=== PATIENT | female | born 2000 | race Hispanic/Latino ===

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

== ENCOUNTER 2022-02-01 12:13 | Emergency (ER) | payer OTHER, MEDICAID, SELFPAY ==
[2021-11-02 08:18] VITALS: BMI 52.4
[2022-02-01 12:39] VITALS: BP 126/72; PULSE 104; RESP 20; TEMP 36.6; O2SAT 99; BMI 50.5
--- NOTE | 2022-02-01 13:19 | ED.RECABL ---
HPI - Recheck/Abnormal Lab/Rx <Keila Amor [facility] - Last Filed: 02/01/22 20:08> General Chief Complaint: Recheck/Abnormal Lab/Rx Stated Complaint: Without Thyroid meds x14 days Time Seen by Provider: 02/01/22 13:04 Source: patient Mode of arrival: Ambulatory History of Present Illness HPI narrative: This is a 21-year-old female who presents to the emergency department requesting a medication refill of her levothyroxine 225 mcg daily for her a thyroidism status post thyroidectomy and radiation in August 2019. Patient states that her primary care provider Sang Mitchell requested patient have a TSH level drawn prior to refilling her prescription, patient states that she does not have time to go to that appointment. She came to the emergency department and states that she has a follow-up appointment with Sang Mitchell in two days and would like her medication refilled so that she can start taking it again. She states it has been two weeks without the 25 mcg tablets the go with her 200 mcg tablets. She denies any mental status changes, weakness, dizziness, or fainting. Related Data Home Medications Medication Instructions Recorded Confirmed acetaminophen 325 mg tablet 325 - 650 mg PO PRN PRN 09/26/19 11/05/21 Previous Rx's Medication Instructions Recorded fluticasone propionate 50 2 spray NASAL DAILY #9.9 ml 08/08/20 mcg/actuation nasal spray,suspension (Flonase Allergy Relief) lorazepam 1 mg tablet (Ativan) 1 mg PO BID PRN #7 tab 01/19/21 cetirizine 10 mg capsule (All Day 10 mg PO DAILY PRN #30 cap 07/09/21 Allergy (cetirizine)) fluoxetine 20 mg capsule 20 mg PO DAILY #90 cap 08/17/21 levothyroxine 25 mcg tablet 25 mcg PO DAILY #60 tab 08/17/21 budesonide-formoterol HFA 160 See Rx Instructions .ROUTE 10/16/21 mcg-4.5 mcg/actuation aerosol .COMPLEX #10.2 g inhaler albuterol sulfate 2.5 mg (3 mL) INHALATION Q4HP PRN 01/22/22 #180 ml albuterol sulfate 90 mcg/actuation 2 puff INHALATION Q4H PRN #18 gram 01/22/22 aerosol inhaler (Proventil HFA) levothyroxine 200 mcg tablet See Rx Instructions .ROUTE 01/28/22 .COMPLEX #7 tab levothyroxine 200 mcg tablet 200 mcg PO DAILY #30 tab 02/01/22 levothyroxine 25 mcg tablet 25 mcg PO DAILY #30 tab 02/01/22 (Levo-T) Allergies Allergy/AdvReac Type Severity Reaction Status Date / Time nystatin Allergy Unknown (From Verified 11/05/21 15:11 NYSTATIN AND TRIAMCINOLONE ACET) triamcinolone Allergy Unknown (From Verified 11/05/21 15:11 NYSTATIN AND TRIAMCINOLONE ACET) oxycodone AdvReac Intermediate ITCHING Verified 11/05/21 15:11 adhesive tape AdvReac Mild rash Verified 11/05/21 15:11 Latex, Natural Rubber AdvReac Mild rash Verified 11/05/21 15:11 Review of Systems <DEMI Barnes - Last Filed: 02/01/22 20:08> Review of Systems Narrative: General: denies fever, chills, malaise, sweats, fatigue Head/Neck: denies headache, neck pain, dizziness Eyes: denies visual changes, eye pain Cardio: denies chest pain, palpitations, edema Respiratory: denies dyspnea, cough, orthopnea GI: denies abdominal pain, nausea, vomiting, or diarrhea : denies dysuria, hematuria, urinary retention, frequency or incontinence MSK: denies joint pain, muscle weakness Skin: denies rash, itching, skin lesions or other Neuro: denies numbness, tingling Patient History <DEMI Barnes - Last Filed: 02/01/22 20:08> Medical History Acne Anxiety (~2018) Asthma Asthma Chronic back pain Depression (~2018) Dysmenorrhea in adolescent Dysuria Heavy menstrual period Hemorrhage following tonsillectomy and adenoidectomy Hx of cholelithiasis Irregular menstrual cycle Moderate persistent asthma Morbid obesity with body mass index (BMI) of 40.0 to 49.9 Painful menstrual periods Palpitations in pediatric patient Papillary thyroid carcinoma Partial blindness (~2012) Pediatric obesity Postprocedural hypothyroidism PTSD (post-traumatic stress disorder) (~2018) Right hip pain Thyroid mass of unclear etiology Vocal cord dysfunction (~2015) VSD (ventricular septal defect) VSD (ventricular septal defect) Wears glasses Surgical History Anesthesia History of cholecystectomy (~2017) History of thyroidectomy (~09/06/19) History of tonsillectomy and adenoidectomy Hx of tympanostomy tubes Family History Father Mental health problem Mother Cancer Mental health problem Brother Mental health problem Sister Mental health problem Grandfather Diabetes mellitus Hypertension Stroke Grandmother Cancer Mental health problem Grandmother History of heart disease Social History household members: family Smoking Status: Current every day smoker alcohol intake: never Smoking Status: Current every day smoker tobacco type: vaping alcohol intake frequency: holidays/special occasions only Substance Use Type: marijuana Exam <DEMI Barnes - Last Filed: 02/01/22 20:08> Narrative Exam Narrative: Independently reviewed vitals signs and nursing notes. General: cooperative, comfortable, in no acute distress, well groomed Head: atraumatic, symmetrical facial expressions Neck: supple Eyes: equal round and reactive, EOMI, conjunctiva normal Nose: nares patent, no rhinorrhea Mouth/Throat: moist mucus membranes Cardiovascular: regular rate and rhythm, no peripheral edema, warm extremities Respiratory: normal effort, able to speak in complete sentences, no audible wheezing, stridor, or rales. No retractions or tachypnea. GI: abdomen soft, nontender to palpation, nondistended, no masses, no exquisite tenderness with exam, without guarding or rebound. MSK: moves all extremities, neurovascularly intact, no weakness, normal tone Skin: brisk capillary refill, no rash, no erythema Neuro: normal speech and cognition, A&O x3 Psych: mental status is grossly normal, congruent mood, normal affect, pleasant and cooperative Initial Vital Signs Initial Vital Signs: Vital Signs Temperature 97.8 F 02/01/22 12:39 Pulse Rate 104 H 02/01/22 12:39 Respiratory Rate 20 02/01/22 12:39 Blood Pressure 126/72 02/01/22 12:39 Pulse Oximetry 99 02/01/22 12:39 <Cierra Garces DO - Last Filed: 02/02/22 07:14> Initial Vital Signs Initial Vital Signs: Vital Signs Temperature 97.8 F 02/01/22 12:39 Pulse Rate 104 H 02/01/22 12:39 Respiratory Rate 20 02/01/22 12:39 Blood Pressure 126/72 02/01/22 12:39 Pulse Oximetry 99 02/01/22 12:39 Course <DEMI Barnes - Last Filed: 02/01/22 20:08> Orders Ordered: ED Orders 02/01/22 13:09 Free T4, Direct Thyroxine Stat TSH w/ Reflex to FT4 Stat Vital Signs Vital signs: Vital Signs - 8 hr 02/01/22 12:39 Temperature 97.8 F Pulse Rate 104 H Respiratory Rate 20 Blood Pressure 126/72 Pulse Oximetry 99 <Cierra Garces DO - Last Filed: 02/02/22 07:14> Orders Ordered: ED Orders 02/01/22 13:09 Free T4, Direct Thyroxine Stat TSH w/ Reflex to FT4 Stat Vital Signs Vital signs: Vital Signs - 8 hr 02/01/22 12:39 Temperature 97.8 F Pulse Rate 104 H Respiratory Rate 20 Blood Pressure 126/72 Pulse Oximetry 99 MDM - Recheck/Abnormal Lab/Rx <DEMI Barnes - Last Filed: 02/01/22 20:08> Lab Data Labs: Lab Results 02/01/22 Range/Units 13:09 TSH 9.49 H (0.47-4.68) uIU/mL Free T4 1.31 (0.78-2.19) ng/dL MDM Narrative Medical decision making narrative: This is a 21-year-old female presents to the emergency department complaining of needing a medication refill of her 25 mcg tablets of levothyroxine to go with her 200 mcg tablets for her a thyroidism s/p thyroidectomy and radiation in August 2019. The patient states that she does not have time for follow-up appointments with her primary care provider to have her thyroid level checked. She was counseled on the importance of rechecking her level to ensure a therapeutic dose as we did not have a therapeutic level on record of her today for her TSH. Her most recent TSH level was 0.2 to sit was on 10/29/2021, she states that that is when to 25 mics was added to her 200 mcg tablets, she has not had another level checked since. Today her TSH level was checked and is 9.49. Previously on 10/29/2021, patient's TSH was 0.226, she states this was after she was treated with 25 mcgs in addition to her 200 mcg. Patient was prescribed 225 mcg of levothyroxine for 30 days, she is to follow-up with her primary care provider for an ongoing prescription. Patient is tearful, states that she does not have time for this. Reassured patient that this is part of chronic disease and just because she had her thyroid out and needs this medication for ever, it might not always be the same dose, and she is not currently therapeutically treated with a TSH of 9.49. Patient was educated on following up within 30 days, she states understanding, her partner was reassuring. Patient does not have any neuro deficits on exam, she is appropriate and amenable to discharge home. Vital signs are stable on repeat examination is unremarkable. Patient has been informed of results. Patient has been given strict return to ER precautions for any new or worsening symptoms. Patient understands to follow up closely with outpatient providers as instructed. Patient understands plan and agrees to discharge home. All questions and concerns answered at this time. <Cierra Garces, - Last Filed: 02/02/22 07:14> Lab Data Labs: Lab Results 02/01/22 Range/Units 13:09 TSH 9.49 H (0.47-4.68) uIU/mL Free T4 1.31 (0.78-2.19) ng/dL Discharge Plan Departure Patient Disposition: Home Clinical Impression: Encounter for medication refill, Athyroidism (acquired) Instructions: Hypothyroidism Activity Restrictions/Additional Instructions: *You have been diagnosed with athyroidism and were provided a refill of your previous prescription of levothyroxine 225 mcg daily for 30 days. Please follow-up at your appointment with Sang Mitchell on Tuesday. I will send your thyroid level to her so she knows what it is. Please return to the emergency department if you have any loss of consciousness, chest pain, or other emergent concerns. I hope that you start feeling better soon. Please have your level checked in 30 days to make sure that is the accurate dose for you. I wish you the best. *What to do: *Please continue to take your regular medications as directed. [x ] New medication prescriptions sent to your pharmacy: [ [facility]] [ ] New medication written as a paper prescription [ ] No new medications given *Please follow up with your primary care provider in 2-3 days, call for an appointment. Let them know you were seen in the Emergency Department and that we asked that you be seen for follow-up. We will electronically transmit a record of today's note if your PCP is in our system *If you do not have a primary care provider please contact [phone] to establish care with one of the [facility] primary care providers. *Return to Emergency Department if you should have any new, worsening or concerning symptoms, such as [fever greater than 101F, chills, worsening pain, persistent vomiting or other bothersome symptoms] Prescriptions: New levothyroxine 200 mcg tablet 200 mcg PO DAILY Qty: 30 0RF levothyroxine [Levo-T] 25 mcg tablet 25 mcg PO DAILY Qty: 30 0RF No Action fluticasone propionate [Flonase Allergy Relief] 50 mcg/actuation spray,suspension 2 spray NASAL DAILY Qty: 9.9 12RF Rx Instructions: administer into each nostril All Day Allergy (cetirizine) 10 mg capsule 10 mg PO DAILY PRN (Reason: allergy symptoms) Qty: 30 0RF Rx Instructions: One tablet each day as needed for allergic rhinitis budesonide-formoterol 160-4.5 mcg/actuation HFA aerosol inhaler See Rx Instructions .ROUTE .COMPLEX Qty: 10.2 3RF Dose Instruction: INHALE 2 PUFFS BY MOUTH TWICE DAILY Rx Instructions: INHALE 2 PUFFS BY MOUTH TWICE DAILY albuterol sulfate 2.5 mg /3 mL (0.083 %) solution for nebulization 2.5 mg inhalation Q4HP PRN (Reason: Shortness Of Breath Or Wheezing) Qty: 180 0RF albuterol sulfate [Proventil HFA] 90 mcg/actuation HFA aerosol inhaler 2 puff INHALATION Q4H PRN (Reason: Asthma) Qty: 18 5RF levothyroxine 200 mcg tablet See Rx Instructions .ROUTE .COMPLEX Qty: 7 0RF Dose Instruction: TAKE 1 TABLET BY MOUTH DAILY Rx Instructions: TAKE 1 TABLET BY MOUTH DAILY levothyroxine 25 mcg tablet 25 mcg PO DAILY Qty: 60 0RF fluoxetine 20 mg capsule 20 mg PO DAILY Qty: 90 1RF acetaminophen 325 mg tablet 325 - 650 mg PO PRN PRN (Reason: pain) 0RF lorazepam [Ativan] 1 mg tablet 1 mg PO BID PRN (Reason: anxiety) Qty: 7 0RF Referrals: Sang Mitchell ARNP [Primary Care Provider] - <Cierra Garces DO - Last Filed: 02/02/22 07:14> Cosign ED Attending Micahature Attestation: I was immediately available in the department for consultation. Documentation has been reviewed. I agree with assessment and plan.
[2022-02-01 14:03] LABS: TSH w/ Reflex to FT4 9.49 uIU/mL (0.47-4.68)
[2022-02-01 14:28] LABS: Free T4, Direct Thyroxine 1.31 ng/dL (0.78-2.19)
== END 2022-02-01 13:20 | disposition home or self-care (01) ==
PROVIDERS: Emergency Medicine; Emergency Provider Nurse Practitioner Critical Care Medicine; PCP Registered Nurse Diabetes Educator
DX: Z76.0 Encounter for issue of repeat prescription (principal); E03.9 Hypothyroidism, unspecified
CPT/HCPCS: 36415; 84439; 84443; 99281; 99283

== ENCOUNTER 2022-02-03 16:07 | Emergency (ER) | payer OTHER, MEDICAID, SELFPAY ==
[2021-11-02 08:18] VITALS: BMI 52.4
[2022-02-03 16:15] VITALS: BP 127/87; PULSE 100; RESP 24; TEMP 37; O2SAT 96
[2022-02-03] MEDS: ALBUTEROL/IPRATROPIUM 3 ML AMPUL INH ×3 (16:31→17:14)
[2022-02-03 16:38] LABS: COVID19 -Nasal RAPID Negative (Negative)
[2022-02-03] MEDS: BUDESONIDE 0.5 MG/2 ML NEB INH (17:22)
--- NOTE | 2022-02-03 17:29 | DI.RAD.S_ITS ---
PROCEDURE: XR CHEST 2V INDICATIONS: wheezing TECHNIQUE: 2 views of the chest were acquired. COMPARISON: [facility], CR, XR CHEST 1V, 09/27/2021, 17:53. FINDINGS: Surgical changes and devices: None. Lungs and pleura: Lungs are clear. No pleural effusions or pneumothorax. Mediastinum: Mediastinal contours are normal. Heart size is normal. Bones and chest wall: No suspicious bony abnormalities. Soft tissues appear unremarkable. IMPRESSION: No significant chest plain film abnormality is seen. Dictated by: Eugene Clark M.D. on 02/03/2022 at 17:06 Approved by: Eugene Clark M.D. on 02/03/2022 at 17:07
[2022-02-03 17:34] LABS: Strep Grp A by PCR Rapid Negative (Negative)
[2022-02-03] MEDS: methylPREDNISolone 125 MG/2 ML VIAL IV (17:57)
[2022-02-03] MEDS: ALBUTEROL HFA PREPACK 1 BOX MISC (17:57)
--- NOTE | 2022-02-03 18:50 | CM.SWNOTE ---
.NET ARCHITECT Assessment Note .NET ARCHITECT receives consult and enters room to meet with patient. Patient is 21 y/o female who presents to ED due to concern for asthma attack and not able to pay for inhaler and albuterol medication. Patient's PCP is DEMI Early, patient had appt today and has f/u appt for 03/18/22. Patient has [facility] [employer] insurance and Medicaid. Patient has hx of Asthma, PTSD, Depression, and Anxiety. Patient endorses that she had her thyroid removed in 2019 due to thyroid cancer and engaged in at least a year of radiation, but has not followed up with [facility]. Patient endorses the trauma of growing up going to the hospital all of the time and concern for the cost of medical treatment that has been holding patient back from seeking regular medical treatment for her chronic and/or acute medical conditions. Patient presents with fiance who presents as advocate and support to patient. 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 Patient and fiance endorse concern for inconsistent living situation and state they are currently living with a friend and plan to move to [place] to live at father's home. Patient endorses her primary concern of many is covering fiances for medical bills, and prescriptions. At this ED visit, ED provider gave patient rx for inhaler and albuterol prepack. .NET ARCHITECT provides patient with options for discount RX, information about medical leave/FMLA and information about [facility] application for today's visit if there is an unexpected cost. .NET ARCHITECT encourages patient to take action in her preventative health care and to f/u with her team at [facility] for her thyroid f/u. Plan: patient to f/u with PCP and seek f/u with specialists. Patient to seek out medical assistance and attempt to apply for medical leave. Patient to d/c when medically clear. DOMINIQUE Richardson
[2022-02-03 18:56] VITALS: BP 129/74; PULSE 103; RESP 24; O2SAT 100
--- NOTE | 2022-02-03 18:56 | ED.SOB ---
HPI - SOB/Dyspnea <Tawny Fallon PA-C - Last Filed: 02/03/22 19:39> General Chief Complaint: Shortness of Breath/Dyspnea Stated Complaint: Asthma attack Time Seen by Provider: 02/03/22 16:25 Source: patient Mode of arrival: Wheelchair Limitations: no limitations History of Present Illness HPI Narrative: Patient is a 21-year-old female presenting today with shortness of breath and difficulty breathing for the past hour. She reports shallow breathing, wheezing, and tachypnea. She additionally reports a sore throat. She denies any chest pain, headache, or nausea. She has a history of asthma but does not take her inhaler routinely as she states she cannot afford it. She says she has been taking a nebulizer daily. She has anxiety and has had asthma exacerbations in the past. Related Data Home Medications Medication Instructions Recorded Confirmed acetaminophen 325 mg tablet 325 - 650 mg PO PRN PRN 09/26/19 02/03/22 Previous Rx's Medication Instructions Recorded fluticasone propionate 50 2 spray NASAL DAILY #9.9 ml 08/08/20 mcg/actuation nasal spray,suspension (Flonase Allergy Relief) lorazepam 1 mg tablet (Ativan) 1 mg PO BID PRN #7 tab 01/19/21 cetirizine 10 mg capsule (All Day 10 mg PO DAILY PRN #30 cap 07/09/21 Allergy (cetirizine)) fluoxetine 20 mg capsule 20 mg PO DAILY #90 cap 08/17/21 levothyroxine 25 mcg tablet 25 mcg PO DAILY #60 tab 08/17/21 budesonide-formoterol HFA 160 See Rx Instructions .ROUTE 10/16/21 mcg-4.5 mcg/actuation aerosol .COMPLEX #10.2 g inhaler albuterol sulfate 2.5 mg (3 mL) INHALATION Q4HP PRN 01/22/22 #180 ml albuterol sulfate 90 mcg/actuation 2 puff INHALATION Q4H PRN #18 gram 01/22/22 aerosol inhaler (Proventil HFA) levothyroxine 200 mcg tablet See Rx Instructions .ROUTE 01/28/22 .COMPLEX #7 tab levothyroxine 200 mcg tablet 200 mcg PO DAILY #30 tab 02/03/22 levothyroxine 25 mcg tablet 25 mcg PO DAILY #30 tab 02/03/22 (Levo-T) methylprednisolone 4 mg tablets in See Rx Instructions .ROUTE 02/03/22 a dose pack (Medrol (Loc)) .COMPLEX #21 ea Allergies Allergy/AdvReac Type Severity Reaction Status Date / Time nystatin Allergy Unknown (From Verified 02/03/22 15:50 NYSTATIN AND TRIAMCINOLONE ACET) triamcinolone Allergy Unknown (From Verified 02/03/22 15:50 NYSTATIN AND TRIAMCINOLONE ACET) oxycodone AdvReac Intermediate ITCHING Verified 02/03/22 15:50 adhesive tape AdvReac Mild rash Verified 02/03/22 15:50 Latex, Natural Rubber AdvReac Mild rash Verified 02/03/22 15:50 Review of Systems <Tawny Fallon PA-C - Last Filed: 02/03/22 19:39> Review of Systems ROS Unobtainable: All systems reviewed & are unremarkable except as noted in HPI and below Constitutional Constitutional: Denies fatigue, Denies fever(s) and Denies weakness Eyes Eyes: Denies change in vision and Denies irritation ENT Ears, Nose, Mouth, and Throat: Denies dizziness, Reports neck pain, Reports sore throat and Denies throat swelling Cardiovascular Cardiovascular: Denies chest pain, Reports rapid heart rate and Reports dyspnea Respiratory Respiratory: Reports as per HPI, Denies chest congestion, Denies cough, Denies excessive phlegm production, Denies pain on inspiration, Reports dyspnea and Reports wheezing Gastrointestinal Gastrointestinal: Denies abdominal pain, Denies diarrhea, Denies nausea and Denies vomiting Genitourinary Genitourinary: Denies dysuria and Denies flank pain Musculoskeletal Musculoskeletal: Denies back pain, Denies muscle weakness and Reports neck pain Integumentary/Breasts Skin/Breast: Denies pruritus, Denies erythema, Denies rash and Denies wounds Neurologic Neurologic: Denies confusion, Denies dizziness and Denies weakness Psychiatric Psychiatric: Reports anxiety, Denies confusion and Reports panic attacks Endocrine Endocrine: Reports system reviewed and no additional complaints, except as documented and Denies fatigue Hematologic/Lymphatic Hematologic/Lymphatic: Reports system reviewed and no additional complaints, except as documented Allergic/Immunologic Allergic/Immunologic: Denies urticaria, Denies throat swelling and Reports wheezing Patient History <Tawny Fallon PA-C - Last Filed: 02/03/22 19:39> Medical History Acne Anxiety (~2018) Asthma Asthma Chronic back pain Depression (~2018) Dysmenorrhea in adolescent Dysuria Heavy menstrual period Hemorrhage following tonsillectomy and adenoidectomy Hx of cholelithiasis Irregular menstrual cycle Moderate persistent asthma Morbid obesity with body mass index (BMI) of 40.0 to 49.9 Painful menstrual periods Palpitations in pediatric patient Papillary thyroid carcinoma Partial blindness (~2012) Pediatric obesity Postprocedural hypothyroidism PTSD (post-traumatic stress disorder) (~2018) Right hip pain Thyroid mass of unclear etiology Vocal cord dysfunction (~2015) VSD (ventricular septal defect) VSD (ventricular septal defect) Wears glasses Surgical History Anesthesia History of cholecystectomy (~2018) History of thyroidectomy (~09/06/19) History of tonsillectomy and adenoidectomy Hx of tympanostomy tubes Family History Father Mental health problem Mother Cancer Mental health problem Brother Mental health problem Sister Mental health problem Grandfather Diabetes mellitus Hypertension Stroke Grandmother Cancer Mental health problem Grandmother History of heart disease Social History household members: family Smoking Status: Current every day smoker alcohol intake: never Smoking Status: Current every day smoker tobacco type: vaping alcohol intake frequency: holidays/special occasions only Substance Use Type: marijuana Exam <Tawny Fallon PA-C - Last Filed: 02/03/22 19:39> Narrative Exam Narrative: GENERAL: 21 year old patient appears stated age. Well-developed patient, in moderate distress. HEAD: Atraumatic. Normocephalic. EYES: Pupils equal round and reactive. Extraocular motions intact. No scleral icterus. No injection or drainage. ENT: Nose without bleeding, purulent drainage. Throat without erythema, tonsillar hypertrophy or exudate. Airway patent. NECK: Trachea midline. Non tender CARDIOVASCULAR: Tachycardic, normal rhythm without murmurs, gallops, or rubs. RESPIRATORY: Tachypnea, bilateral wheezing present GASTROINTESTINAL: Abdomen soft, non-tender, nondistended. EXTREMITIES: No edema or joint tenderness. BACK: Nontender without deformity or crepitance. No flank tenderness. NEURO: AOx3. SKIN: No rash or erythema of visible areas Initial Vital Signs Initial Vital Signs: Vital Signs Temperature 98.6 F 02/03/22 16:15 Pulse Rate 100 H 02/03/22 16:15 Respiratory Rate 24 02/03/22 16:15 Blood Pressure 127/87 02/03/22 16:15 Pulse Oximetry 96 02/03/22 16:15 Course <Tawny Fallon PA-C - Last Filed: 02/03/22 19:39> Orders Ordered: Discontinued Medications Albuterol (Albuterol Hfa Prepack) 1 box MISC SEEINSTR ONE Stop: 02/03/22 17:42 Last Admin: 02/03/22 17:57 Dose: 1 box Documented by: RUTH Albuterol/Ipratropium (Albuterol/Ipratropium 3 Ml Ampul) 3 ml INH Q20M ROXI Stop: 02/03/22 17:11 Last Admin: 02/03/22 17:14 Dose: 3 ml Documented by: Admin: 02/03/22 16:48 Dose: 3 ml Documented by: Admin: 02/03/22 16:31 Dose: 3 ml Documented by: NIGEL Budesonide (Budesonide 0.5 Mg/2 Ml Neb) 0.5 mg INH NOW ONE Stop: 02/03/22 17:16 Last Admin: 02/03/22 17:22 Dose: 0.5 mg Documented by: NIGEL Methylprednisolone (Methylprednisolone 125 Mg/2 Ml Vial) 125 mg IV NOW ONE Stop: 02/03/22 17:29 Last Admin: 02/03/22 17:57 Dose: 125 mg Documented by: RUTH Vital Signs Vital signs: Vital Signs - 8 hr 02/03/22 16:15 02/03/22 18:56 Temperature 98.6 F Pulse Rate 100 H 103 H Respiratory Rate 24 24 Blood Pressure 127/87 129/74 Pulse Oximetry 96 100 MDM - SOB/Dyspnea <Tawny Fallon PA-C - Last Filed: 02/03/22 19:39> Lab Data Labs: Lab Results 02/03/22 02/03/22 Range/Units 16:18 17:19 SARS-CoV-2 (PCR) Negative (Negative) Group A Strep (PCR) Negative (Negative) Imaging Data Chest x-ray: Radiologist's Impression: [address] [address] XRay Report Signed Patient: Kavita Moura MR#: [id number] : 2000 Acct:[id number] Age/Sex: 21 / F Date of Service: 02/03/22 Loc: ED Accession Number: [id number] ?? Procedure: XR chest 2V Ordering Provider: Tawny Fallon P.A-C PROCEDURE:? XR CHEST 2V ? INDICATIONS:? wheezing ? TECHNIQUE:? 2 views of the chest were acquired.? ? COMPARISON:? [facility], CR, XR CHEST 1V, 09/27/2021, 17:53. ? FINDINGS:? ? Surgical changes and devices:? None.? ? Lungs and pleura:? Lungs are clear.? No pleural effusions or pneumothorax.? ? Mediastinum:? Mediastinal contours are normal.? Heart size is normal.? ? Bones and chest wall:? No suspicious bony abnormalities.? Soft tissues appear unremarkable.? IMPRESSION:? ? No significant chest plain film abnormality is seen. ? ? Dictated by: Eugene Clark M.D. on 02/03/2022 at 17:06 ? ? Approved by: Eugene Clark M.D. on 02/03/2022 at 17:07 ? MDM Narrative Medical decision making narrative: Patient is a 21-year-old female presenting today with shortness of breath and difficulty breathing for the past hour. Differential diagnoses include asthma exacerbation, panic attacks, upper respiratory infection. She was COVID and strep negative, and her chest x-ray was normal. She had an RT consult and was given 3 nebulizer treatments with mild resolution of symptoms and persistent wheezing. She was given an albuterol HFA and methylprednisolone which improved her symptoms. Social work was consulted due to patient's inability to afford medical treatment. I prescribed a Medrol Dosepak and instructed her to begin taking the prescription tomorrow as she already received a large steroid dose today in the ER. Encouraged patient to take all of her medications as prescribed and to see her primary care provider regularly for asthma maintenance. I instructed her to return to the ER with worsening shortness of breath or dyspnea. Findings and discharge diagnosis discussed with patient/family followed by verbalization of understanding Return precautions discussed with patient/family whom verbalize understanding. Discharge Plan Departure Patient Disposition: Home Clinical Impression: Asthma with exacerbation Qualifiers: Asthma severity: unspecified severity Asthma persistence: unspecified Qualified Code(s): J45.901 - Unspecified asthma with (acute) exacerbation Instructions: DI for Asthma -- Adult Activity Restrictions/Additional Instructions: *You have been diagnosed with acute asthma exacerbation. Please take your inhaler as prescribed and start your steroid prescription tomorrow as you already received steroids in the ER today. Return to the ER with returning symptoms such as worsening shortness of breath or wheezing. I recommend routine follow-up with a primary provider for asthma maintenance. *What to do: *Please continue to take your regular medications as directed. [X] New medication prescriptions sent to your pharmacy: [[facility]] [ ] New medication written as a paper prescription [ ] No new medications given *Please follow up with your primary care provider in 2-3 days, call for an appointment. Let them know you were seen in the Emergency Department and that we ask that you be seen in follow up. We will electronically transmit a record of today's note if your PCP is in our system *If you do not have a primary care provider please contact the [facility] Call Center at [phone] and they can help get you set up with a doctor in the community. *Return to Emergency Department if you should have any new, worsening or concerning symptoms, such as [fever greater than 101 F, shaking chills, worsening pain, persistent vomiting or other bothersome symptoms] Prescriptions: New methylprednisolone [Medrol (Loc)] 4 mg tablets,dose pack See Rx Instructions .ROUTE .COMPLEX Qty: 21 0RF Rx Instructions: orally per package directions No Action fluticasone propionate [Flonase Allergy Relief] 50 mcg/actuation spray,suspension 2 spray NASAL DAILY Qty: 9.9 12RF Rx Instructions: administer into each nostril All Day Allergy (cetirizine) 10 mg capsule 10 mg PO DAILY PRN (Reason: allergy symptoms) Qty: 30 0RF Rx Instructions: One tablet each day as needed for allergic rhinitis budesonide-formoterol 160-4.5 mcg/actuation HFA aerosol inhaler See Rx Instructions .ROUTE .COMPLEX Qty: 10.2 3RF Dose Instruction: INHALE 2 PUFFS BY MOUTH TWICE DAILY Rx Instructions: INHALE 2 PUFFS BY MOUTH TWICE DAILY albuterol sulfate 2.5 mg /3 mL (0.083 %) solution for nebulization 2.5 mg inhalation Q4HP PRN (Reason: Shortness Of Breath Or Wheezing) Qty: 180 0RF albuterol sulfate [Proventil HFA] 90 mcg/actuation HFA aerosol inhaler 2 puff INHALATION Q4H PRN (Reason: Asthma) Qty: 18 5RF levothyroxine 200 mcg tablet See Rx Instructions .ROUTE .COMPLEX Qty: 7 0RF Dose Instruction: TAKE 1 TABLET BY MOUTH DAILY Rx Instructions: TAKE 1 TABLET BY MOUTH DAILY levothyroxine 25 mcg tablet 25 mcg PO DAILY Qty: 60 0RF fluoxetine 20 mg capsule 20 mg PO DAILY Qty: 90 1RF levothyroxine 200 mcg tablet 200 mcg PO DAILY Qty: 30 0RF levothyroxine [Levo-T] 25 mcg tablet 25 mcg PO DAILY Qty: 30 0RF acetaminophen 325 mg tablet 325 - 650 mg PO PRN PRN (Reason: pain) 0RF lorazepam [Ativan] 1 mg tablet 1 mg PO BID PRN (Reason: anxiety) Qty: 7 0RF Referrals: Sang Mitchell ARNP [Primary Care Provider] -
== END 2022-02-03 19:15 | disposition home or self-care (01) ==
PROVIDERS: Emergency Medicine; Emergency Provider Physician Assistant; PCP Registered Nurse Diabetes Educator
DX: J45.901 Unspecified asthma with (acute) exacerbation (principal); F17.290 Nicotine dependence, other tobacco product, uncomplicated; Z20.822 Contact with and (suspected) exposure to COVID-19
CPT/HCPCS: 36415; 71046; 87070; 87635; 87651; 96374; 99284; C9803; J2930

== ENCOUNTER → 2022-03-15 16:26 | Outpatient (CLI) | payer OTHER, MEDICAID, SELFPAY ==
[2021-11-02 08:18] VITALS: BMI 52.4
[2022-03-15 18:05] LABS: TSH w/ Reflex to FT4 0.09 uIU/mL (0.47-4.68)
[2022-03-15 22:36] LABS: Free T4, Direct Thyroxine 1.87 ng/dL (0.78-2.19)
== END ==
PROVIDERS: PCP Registered Nurse Diabetes Educator; Referring Provider Registered Nurse Diabetes Educator; Visit Provider Registered Nurse Diabetes Educator
DX: E89.0 Postprocedural hypothyroidism (principal)
CPT/HCPCS: 36415; 84439; 84443

== ENCOUNTER → 2022-05-25 13:39 | Outpatient (CLI) | payer OTHER, MEDICAID, SELFPAY ==
[2022-05-14 09:59] VITALS: BMI 52.4
[2022-05-25 16:28] LABS: TSH w/ Reflex to FT4 0.43 uIU/mL (0.47-4.68)
[2022-05-25 17:11] LABS: Free T4, Direct Thyroxine 2.22 ng/dL (0.78-2.19)
== END ==
PROVIDERS: PCP Registered Nurse Diabetes Educator; Referring Provider Registered Nurse Diabetes Educator; Visit Provider Registered Nurse Diabetes Educator
DX: C73 Malignant neoplasm of thyroid gland (principal); E89.0 Postprocedural hypothyroidism; J45.50 Severe persistent asthma, uncomplicated
CPT/HCPCS: 36415; 84439; 84443

== ENCOUNTER 2022-07-21 21:17 | Emergency (ER) | payer OTHER, MEDICAID, SELFPAY ==
[2022-05-14 09:59] VITALS: BMI 52.4
[2022-07-21 22:02] VITALS: BP 143/67; PULSE 89; RESP 22; TEMP 36.9; O2SAT 98; BMI 55.5
[2022-07-21 23:16] LABS: Add Manual Diff / Slide Review NO; Basophils Absolute Auto 100 /uL (0-100); Basophils Percent Auto 0.6 % (0-2); Eosinophils Absolute Auto 300 /uL (0-450); Eosinophils Percent Auto 2.7 % (2-4); Hematocrit 39.9 % (36-46); Hemoglobin 13.2 g/dL (12.0-16.0); Lymphocytes Absolute Auto 3800 /uL (1100-4500); Lymphocytes Percent Auto 29.8 % (25-40); Mean Corpuscular HGB Conc 33.1 % (30-36); Mean Corpuscular Hemoglobin 28.4 PG (26-34); Mean Corpuscular Volume 85.6 fL (80-100); Monocytes Absolute Auto 800 /uL (0-900); Neutrophils Absolute Auto 7700 /uL (1500-7000); Neutrophils Percent Auto 60.9 % (50-75); Platelet Count 361 X10^3/uL (150-400); Red Blood Cell Count 4.67 X10^6/uL (4.0-5.2); Red Cell Distribution Width 14.3 % (11.6-14.8); White Blood Cell Count 12.6 X10^3/uL (4.5-11.0)
[2022-07-21 23:26] LABS: Alanine Aminotransferase 21 IU/L (<35); Albumin 3.9 g/dL (3.5-5.0); Albumin Globulin Ratio 1.3 (1.0-2.8); Alkaline Phosphatase 68 U/L (38-126); Aspartate Aminotransferase 18 IU/L (14-36); BUN Creatinine Ratio 17.1 (6-22); Bilirubin Total 0.4 mg/dL (0.2-1.3); Blood Urea Nitrogen 14 mg/dL (7-17); Calcium 8.9 mg/dL (8.4-10.2); Carbon Dioxide 24 mmol/L (22-32); Chloride 106 mmol/L (98-107); Estimated Glomerular Filt Rate > 60 mL/min (>60); Globulin 3.1 g/dL (1.7-4.1); Glucose 97 mg/dL (70-100); HEMOLYSIS < 15 (0-50); Lipase 120 U/L (23-300); Potassium 4.1 mmol/L (3.4-5.1); Sodium 139 mmol/L (137-145)
--- NOTE | 2022-07-22 00:20 | ED_ITS ---
HPI - Abdominal Pain General Chief Complaint: Abdominal Pain Stated Complaint: No BM in 10 days Time Seen by Provider: 07/21/22 23:51 Source: patient Mode of arrival: Ambulatory History of Present Illness HPI narrative: Patient is a 21-year-old history thyroid cancer and thyroidectomy presenting today with abdominal pain. States that he has not had a bowel movement last 10 days. Now she started vomiting she is having severe pain and cramping. Says that she is trying to eat but poorly tolerating thing. No flank pain no fever or chills. She states that she has tried many [id number] medications to have a bowel movement including senna and she did drink at seems salt diluted with water along with prune juice without any relief. Related Data Home Medications Medication Instructions Recorded Confirmed acetaminophen 325 mg tablet 325 - 650 mg PO PRN PRN pain 09/26/19 02/03/22 Previous Rx's Medication Instructions Recorded fluticasone propionate 50 2 spray intranasal DAILY #9.9 mL 08/08/20 mcg/actuation nasal spray,suspension (Flonase Allergy Relief) lorazepam 1 mg tablet (Ativan) 1 mg PO BID PRN anxiety #7 tabs 01/19/21 cetirizine 10 mg capsule (All Day 10 mg PO DAILY PRN allergy 07/09/21 Allergy (cetirizine)) symptoms #30 caps budesonide-formoterol HFA 160 See Rx Instructions .Route 10/16/21 mcg-4.5 mcg/actuation aerosol .COMPLEX #10.2 grams inhaler albuterol sulfate 90 mcg/actuation 2 puff inhalation Q4H PRN Asthma 01/22/22 aerosol inhaler (Proventil HFA) #18 grams methylprednisolone 4 mg tablets in See Rx Instructions PO .COMPLEX 02/03/22 a dose pack (Medrol (Loc)) #21 ea albuterol sulfate 2.5 mg/3 mL 2.5 mg (3 mL) inhalation Q4HP PRN 03/06/22 (0.083 %) solution for nebulization Shortness Of Breath Or Wheezing #180 mL montelukast 10 mg tablet 10 mg PO BEDTIME #30 tabs 03/18/22 escitalopram oxalate 10 mg tablet 10 mg PO DAILY #30 tabs 05/12/22 (Lexapro) levothyroxine 175 mcg tablet 175 mcg PO DAILY #90 tabs 05/26/22 lactulose 10 gram/15 mL (15 mL) 15 ml PO DAILY PRN constipation 07/22/22 oral solution #750 mL ondansetron 4 mg disintegrating 4 mg PO Q8H PRN nausea and 07/22/22 tablet vomiting #10 tabs Allergies Allergy/AdvReac Type Severity Reaction Status Date / Time nystatin Allergy Unknown (From Verified 02/03/22 15:50 NYSTATIN AND TRIAMCINOLONE ACET) triamcinolone Allergy Unknown (From Verified 02/03/22 15:50 NYSTATIN AND TRIAMCINOLONE ACET) oxycodone AdvReac Intermediate ITCHING Verified 02/03/22 15:50 adhesive tape AdvReac Mild rash Verified 02/03/22 15:50 Latex, Natural Rubber AdvReac Mild rash Verified 02/03/22 15:50 Review of Systems Review of Systems Narrative: GENERAL: Denies chills, fatigue, malaise, fever, sweats, travel HEENT: Denies sinus pain, ear pain, sore throat, difficulty swallowing, neck pain RESPIRATORY: Denies dyspnea, cough, wheezing, hemoptysis, sputum. CARDIOVASCULAR: Denies chest pain, palpitations, orthopnea, edema GASTROINTESTINAL: See HPI : Denies dysuria, frequency, incontinence, hematuria, urinary retention, flank pain. MUSCULOSKELETAL: Denies weakness, joint pain, or bony pain SKIN: No rash, no erythema, no pruritus NEUROLOGIC: Denies weakness, dizziness, headache, numbness, change in speech, confusion PSYCHIATRIC: No concerning psychosocial issues. 12 point review of systems is negative except for those stated above and HPI Patient History Medical History Acne Anxiety (~2017) Asthma Asthma Chronic back pain Depression (~2017) Dysmenorrhea in adolescent Dysuria Heavy menstrual period Hemorrhage following tonsillectomy and adenoidectomy Hx of cholelithiasis Irregular menstrual cycle Moderate persistent asthma Morbid obesity with body mass index (BMI) of 40.0 to 49.9 Painful menstrual periods Palpitations in pediatric patient Papillary thyroid carcinoma Partial blindness (~2012) Pediatric obesity Postprocedural hypothyroidism PTSD (post-traumatic stress disorder) (~2018) Right hip pain Severe persistent asthma Thyroid mass of unclear etiology Vocal cord dysfunction (~2015) VSD (ventricular septal defect) VSD (ventricular septal defect) Wears glasses Surgical History Anesthesia History of cholecystectomy (~2018) History of thyroidectomy (~09/06/19) History of tonsillectomy and adenoidectomy Hx of tympanostomy tubes Family History Father Mental health problem Mother Cancer Mental health problem Brother Mental health problem Sister Mental health problem Grandfather Diabetes mellitus Hypertension Stroke Grandmother Cancer Mental health problem Grandmother History of heart disease Social History household members: family Smoking Status: Current every day smoker alcohol intake: never Smoking Status: Current every day smoker tobacco type: vaping alcohol intake frequency: holidays/special occasions only Substance Use Type: marijuana Exam Initial Vital Signs Initial Vital Signs: Vital Signs Temperature 98.4 F 07/21/22 22:02 Pulse Rate 89 07/21/22 22:02 Respiratory Rate 22 07/21/22 22:02 Blood Pressure 143/67 H 07/21/22 22:02 Pulse Oximetry 98 07/21/22 22:02 Oxygen Delivery Method 07/21/22 22:02 GENERAL: Alert pleasant 21-year-old female BMI 55 HEENT: Head atraumatic,EOMI, pupils reactive, face symmetric, moist mucous membranes CARDIOVASCULAR: Regular rate and rhythm without murmurs, rubs or gallops. RESPIRATORY: Breath sounds equal bilaterally, no wheezes rales or rhonchi. ABDOMEN: Soft, minimally tender across lower abdomen no specific right or left pain. To body habitus difficult to truly assess. But no right upper quadrant pain. EXTREMITIES: Normal range of motion, no clubbing or edema. Neurovascularly intact NEUROLOGICAL: Alert and oriented x4.Normal gait and speech. SKIN: Warm, dry, no laceration, no petechiae, no rashes or lesions. Course Orders Ordered: ED Orders 07/21/22 23:00 Complete Blood Count AUTO DIFF Stat Comprehensive Metabolic Panel Stat Lipase Stat 07/22/22 00:26 CT abdomen pelvis w con Stat 07/22/22 00:37 Test Urine Stat Discontinued Medications Acetaminophen (Acetaminophen 325 Mg Tablet) 975 mg PO NOW ONE Stop: 07/22/22 02:17 Last Admin: 07/22/22 02:20 Dose: 975 mg Documented By: KH Ketorolac Tromethamine (Ketorolac 30 Mg/Ml Vial) 15 mg IV NOW ONE Stop: 07/22/22 00:27 Last Admin: 07/22/22 00:38 Dose: 15 mg Documented By: ASHUTOSH Ondansetron HCl (Ondansetron 4 Mg/2 Ml Inj) 4 mg IV NOW ONE Stop: 07/22/22 00:27 Last Admin: 07/22/22 00:38 Dose: 4 mg Documented By: ASHUTOSH Vital Signs Vital signs: Vital Signs - 8 hr 07/21/22 22:02 Temperature 98.4 F Pulse Rate 89 Respiratory Rate 22 Blood Pressure 143/67 H Pulse Oximetry 98 Oxygen Delivery Method Room Air MDM - Abdominal Pain Differential Diagnosis Differential diagnosis: Likely abdominal pain, acute appendicitis, calculus of kidney, constipation and diverticulitis Lab Data Result diagrams: 07/21/22 23:00 07/21/22 23:00 Labs: Lab Results 07/21/22 07/21/22 07/21/22 Range/Units 22:05 23:00 23:00 WBC 12.6 H (4.5-11.0) X10^3/uL RBC 4.67 (4.0-5.2) X10^6/uL Hgb 13.2 (12.0-16.0) g/dL Hct 39.9 (36-46) % MCV 85.6 (80-100) fL MCH 28.4 (26-34) PG MCHC 33.1 (30-36) % RDW 14.3 (11.6-14.8) % Plt Count 361 (150-400) X10^3/uL Neut % (Auto) 60.9 (50-75) % Lymph % (Auto) 29.8 (25-40) % [place] % (Auto) 6.0 (3-14) % Eos % (Auto) 2.7 (2-4) % Baso % (Auto) 0.6 (0-2) % Neut # (Auto) 7700 H (3592-2926) /uL Lymph # (Auto) 3800 (3831-9395) /uL [place] # (Auto) 800 (0-900) /uL Eos # (Auto) 300 (0-450) /uL Baso # (Auto) 100 (0-100) /uL Sodium 139 (137-145) mmol/L Potassium 4.1 (3.4-5.1) mmol/L Chloride 106 (98-107) mmol/L Carbon Dioxide 24 (22-32) mmol/L BUN 14 (7-17) mg/dL Creatinine 0.82 (0.52-1.04) mg/dL Estimated GFR > 60 (>60) mL/min BUN/Creatinine Ratio 17.1 (6-22) Glucose 97 (70-100) mg/dL Calcium 8.9 (8.4-10.2) mg/dL Total Bilirubin 0.4 (0.2-1.3) mg/dL AST 18 (14-36) IU/L ALT 21 (<35) IU/L Alkaline Phosphatase 68 (38-126) U/L Total Protein 7.0 (6.3-8.2) g/dL Albumin 3.9 (3.5-5.0) g/dL Globulin 3.1 (1.7-4.1) g/dL Albumin/Globulin Ratio 1.3 (1.0-2.8) Lipase 120 (23-300) U/L Urine Test Negative (Negative) Point of care testing: Urine Dip Bedside Urine Glucose Negative Bedside Urine Bilirubin - Negative Bedside Urine Ketone - Negative Urine Specific [place] 1.025 Bedside Urine Occult Blood - Negative Bedside Urine pH 6 Bedside Urine Protein - Negative Bedside Urine Urobilinogen - Negative Bedside Urine Nitrite - Negative Bedside Urine Leukocytes - Negative Esterase Imaging Data CT scan - abdomen/pelvis: Radiologist's Impression: SUNNY Deutsch [id number] CT Scan Report Signed Patient: Kavita Moura MR#: [id number] : 2000 Acct:[id number] Age/Sex: 21 / F Date of Service: 07/22/22 Loc: ED Accession Number: [id number] ?? Procedure: CT abdomen pelvis w con Ordering Provider: Cierra Garces D.O. PROCEDURE:? CT ABDOMEN PELVIS W CON ? INDICATIONS:? ab pain vomiting constipation ? TECHNIQUE:? After the administration of IV contrast, axial sections were acquired from the lung bases to the pubic symphysis.? Coronal and sagittal reformats were performed.? For radiation dose reduction, the following was used:? automated exposure control, adjustment of mA and/or kV according to patient size. ? COMPARISON:? [facility], CT, CT ABDOMEN PELVIS W CON, 10/28/2021, 10:52. ? FINDINGS:? Image quality:? Excellent.? ? Lung bases:? Unremarkable.? ? Heart:? Heart is normal in size. ? ABDOMEN: Liver:? There is mild focal fatty infiltration in the anterior left hepatic lobe. Gallbladder:? Surgically absent. Biliary ducts:? No biliary ductal dilatation.? ? Pancreas:? Unremarkable.? ? Spleen:? Normal in size.? ? Adrenal Glands:? No adrenal nodules.? ? Kidneys and Ureters:? No hydronephrosis.? ? ? Stomach and Bowel:? Stomach, small bowel loops, and colon are normal in caliber and wall thickness.? Peritoneum:? There is a small amount of intraperitoneal free fluid in the pelvis which appears within physiologic limits.? No free air.? ? Ventral Wall: ? No hernia.? Abdominal Nodes:? No retroperitoneal or mesenteric adenopathy by size criteria.? Vessels:? Aorta and inferior vena cava are normal in size.? ? PELVIS: Pelvic Organs:? Unremarkable.? ? Bladder:? Unremarkable.? ? Pelvic Nodes: No enlarged lymph nodes.? Miscellaneous: No inguinal hernias are seen. ? ? ? Bones:? Visualized osseous structures demonstrate no suspicious focal lesions. ? IMPRESSION:? ? 1. No definite acute intra-abdominal abnormality.? Specifically, no evidence of bowel obstruction. ? 2. No evidence of appendicitis.? ? ? Dictated by: Milton Jules M.D. on 07/22/2022 at 1:45 ? ? MDM Narrative Medical decision making narrative: Patient presenting with abdominal pain and no bowel movement for 10 days. Minimally tender on abdominal exam. Due to body habitus very difficult to assess. CT actually does not show any significant constipation or any cause for her abdominal discomfort. His blood work is overall reassuring no sign of infection. She was given Toradol here in the ED which did help mildly with her pain. She has not been vomiting. She overall appears well. At this time as she is quite focused on not having a bowel movement for 10 days. She is given a prescription for lactulose she can try an at home along with Zofran. I do not suspect his pelvic cause of her pain it is a little bit higher near umbilicus. It also is not localized do not suspect ovarian torsion or abscess. Discharge Plan Departure Patient Disposition: Home Clinical Impression: Abdominal pain Instructions: DI for Abdominal Pain-Adult Activity Restrictions/Additional Instructions: *You have been diagnosed with abdominal pain *What to do: At this time blood work is overall reassuring CT scan does not show any abnormality. You can try lactulose for bowel movement but it does not appear that he is severely constipated *Continue to take medications as directed Lactulose take as directed only as needed for constipation Zofran 4 mg every 8 hours with needed for nausea or vomiting *Follow up with your primary care provider in 2-3 days or call [phone] *Return to ER if you should have increased abdominal pain persistent vomiting [or] any new, worsening or concerning symptoms Prescriptions: New lactulose 10 gram/15 mL (15 mL) solution 15 ml PO DAILY PRN (Reason: constipation) Qty: 750 0RF ondansetron 4 mg tablet,disintegrating 4 mg PO Q8H PRN (Reason: nausea and vomiting) Qty: 10 0RF No Action fluticasone propionate [Flonase Allergy Relief] 50 mcg/actuation spray,suspension 2 spray NASAL DAILY Qty: 9.9 12RF Rx Instructions: administer into each nostril All Day Allergy (cetirizine) 10 mg capsule 10 mg PO DAILY PRN (Reason: allergy symptoms) Qty: 30 0RF Rx Instructions: One tablet each day as needed for allergic rhinitis budesonide-formoterol 160-4.5 mcg/actuation HFA aerosol inhaler See Rx Instructions .ROUTE .COMPLEX Qty: 10.2 3RF Dose Instruction: INHALE 2 PUFFS BY MOUTH TWICE DAILY Rx Instructions: INHALE 2 PUFFS BY MOUTH TWICE DAILY albuterol sulfate [Proventil HFA] 90 mcg/actuation HFA aerosol inhaler 2 puff INHALATION Q4H PRN (Reason: Asthma) Qty: 18 5RF albuterol sulfate 2.5 mg /3 mL (0.083 %) solution for nebulization 2.5 mg inhalation Q4HP PRN (Reason: Shortness Of Breath Or Wheezing) Qty: 180 0RF levothyroxine 175 mcg tablet 175 mcg PO DAILY Qty: 90 0RF montelukast 10 mg tablet 10 mg PO BEDTIME Qty: 30 2RF escitalopram oxalate [Lexapro] 10 mg tablet 10 mg PO DAILY Qty: 30 1RF acetaminophen 325 mg tablet 325 - 650 mg PO PRN PRN (Reason: pain) methylprednisolone [Medrol (Loc)] 4 mg tablets,dose pack See Rx Instructions .ROUTE .COMPLEX Qty: 21 0RF Rx Instructions: orally per package directions lorazepam [Ativan] 1 mg tablet 1 mg PO BID PRN (Reason: anxiety) Qty: 7 0RF Referrals: Sang Mitchell ARNP [Primary Care Provider] - Visit Report Forms: Patient Portal/API
--- NOTE | 2022-07-22 00:26 | DI.CT.S_ITS ---
PROCEDURE: CT ABDOMEN PELVIS W CON INDICATIONS: ab pain vomiting constipation TECHNIQUE: After the administration of IV contrast, axial sections were acquired from the lung bases to the pubic symphysis. Coronal and sagittal reformats were performed. For radiation dose reduction, the following was used: automated exposure control, adjustment of mA and/or kV according to patient size. COMPARISON: [facility], CT, CT ABDOMEN PELVIS W CON, 10/28/2021, 10:52. FINDINGS: Image quality: Excellent. Lung bases: Unremarkable. Heart: Heart is normal in size. ABDOMEN: Liver: There is mild focal fatty infiltration in the anterior left hepatic lobe. Gallbladder: Surgically absent. Biliary ducts: No biliary ductal dilatation. Pancreas: Unremarkable. Spleen: Normal in size. Adrenal Glands: No adrenal nodules. Kidneys and Ureters: No hydronephrosis. Stomach and Bowel: Stomach, small bowel loops, and colon are normal in caliber and wall thickness. Peritoneum: There is a small amount of intraperitoneal free fluid in the pelvis which appears within physiologic limits. No free air. Ventral Wall: No hernia. Abdominal Nodes: No retroperitoneal or mesenteric adenopathy by size criteria. Vessels: Aorta and inferior vena cava are normal in size. PELVIS: Pelvic Organs: Unremarkable. Bladder: Unremarkable. Pelvic Nodes: No enlarged lymph nodes. Miscellaneous: No inguinal hernias are seen. Bones: Visualized osseous structures demonstrate no suspicious focal lesions. IMPRESSION: 1. No definite acute intra-abdominal abnormality. Specifically, no evidence of bowel obstruction. 2. No evidence of appendicitis. Dictated by: Milton Jules M.D. on 07/22/2022 at 1:45 Approved by: Milton Jules M.D. on 07/22/2022 at 1:49
[2022-07-22] MEDS: ONDANSETRON 4 MG/2 ML INJ IV (00:38)
[2022-07-22] MEDS: KETOROLAC 30 MG/ML VIAL 15 MG IV (00:38)
[2022-07-22 00:41] LABS: Pregnancy Test Urine Negative (Negative)
[2022-07-22] MEDS: ACETAMINOPHEN 325 MG TABLET 975 MG PO (02:20)
== END 2022-07-22 02:36 | disposition home or self-care (01) ==
PROVIDERS: Emergency Provider Emergency Medicine; PCP Registered Nurse Diabetes Educator
DX: R10.9 Unspecified abdominal pain (principal); R11.10 Vomiting, unspecified
CPT/HCPCS: 36415; 74177; 80053; 81003; 81025; 83690; 85025; 96374; 96375; 99284; J1885; J2405; Q9967

== ENCOUNTER → 2022-10-18 13:36 | Outpatient (CLI) | payer OTHER, MEDICAID, SELFPAY ==
[2022-05-14 09:59] VITALS: BMI 52.4
[2022-10-18 15:24] LABS: TSH w/ Reflex to FT4 4.66 uIU/mL (0.47-4.68)
== END ==
PROVIDERS: PCP Registered Nurse Diabetes Educator; Referring Provider Registered Nurse Diabetes Educator; Visit Provider Registered Nurse Diabetes Educator
DX: E89.0 Postprocedural hypothyroidism (principal)
CPT/HCPCS: 36415; 84443

== ENCOUNTER 2023-02-05 21:56 | Emergency (ER) | payer OTHER, MEDICAID, SELFPAY ==
[2022-05-14 09:59] VITALS: BMI 52.4
[2023-02-05 22:01] VITALS: BP 127/82; PULSE 101; RESP 18; TEMP 36.7; O2SAT 98; BMI 54.5
--- NOTE | 2023-02-06 01:22 | ED.EAR ---
HPI - Ear Problem General Chief complaint: Ear Stated complaint: Ear pain, Loss of hearing Time Seen by Provider: 02/06/23 00:17 Source: patient and family Mode of arrival: Ambulatory History of Present Illness HPI Narrative: Patient is a healthy 22-year-old with history of thyroid cancer and thyroidectomy, who presents with left ear pain and loss of hearing for 24 hours. Denies any pain or fever. Related Data Home Medications Medication Instructions Recorded Confirmed acetaminophen 325 mg tablet 325 - 650 mg PO PRN PRN pain 09/26/19 09/02/22 Previous Rx's Medication Instructions Recorded fluticasone propionate 50 2 spray intranasal DAILY #9.9 mL 08/08/20 mcg/actuation nasal spray,suspension (Flonase Allergy Relief) lorazepam 1 mg tablet (Ativan) 1 mg PO BID PRN anxiety #7 tabs 01/19/21 cetirizine 10 mg capsule (All Day 10 mg PO DAILY PRN allergy 07/09/21 Allergy (cetirizine)) symptoms #30 caps lactulose 10 gram/15 mL (15 mL) 15 ml PO DAILY PRN constipation 07/22/22 oral solution #750 mL albuterol sulfate 2.5 mg/3 mL 2.5 mg (3 mL) inhalation Q4HP PRN 08/03/22 (0.083 %) solution for nebulization Shortness Of Breath Or Wheezing #180 mL albuterol sulfate 90 mcg/actuation 2 puff inhalation Q4H PRN Asthma 12/27/22 aerosol inhaler (Proventil HFA) #8.5 grams budesonide-formoterol HFA 160 See Rx Instructions .Route 12/27/22 mcg-4.5 mcg/actuation aerosol .COMPLEX #30.6 grams inhaler buspirone 7.5 mg tablet 7.5 mg PO BID #180 tabs 12/27/22 hydroxyzine HCl 25 mg tablet 25 mg PO QID PRN anxiety #60 tabs 12/27/22 levothyroxine 200 mcg tablet 200 mcg PO .COMPLEX #90 tabs 12/27/22 montelukast 10 mg tablet 10 mg PO BEDTIME #90 tabs 12/27/22 ondansetron 4 mg disintegrating 4 mg PO Q8H PRN nausea and 12/27/22 tablet vomiting #30 tabs Allergies Allergy/AdvReac Type Severity Reaction Status Date / Time nystatin Allergy Unknown (From Verified 02/05/23 22:00 NYSTATIN AND TRIAMCINOLONE ACET) triamcinolone Allergy Unknown (From Verified 02/05/23 22:00 NYSTATIN AND TRIAMCINOLONE ACET) oxycodone AdvReac Intermediate ITCHING Verified 02/05/23 22:00 adhesive tape AdvReac Mild rash Verified 02/05/23 22:00 Latex, Natural Rubber AdvReac Mild rash Verified 02/05/23 22:00 Review of Systems Review of Systems ROS Unobtainable: All systems reviewed & are unremarkable except as noted in HPI and below Patient History Medical History Acne Anxiety (~2018) Asthma Asthma Chronic back pain Depression (~2018) Dysmenorrhea in adolescent Dysuria Heavy menstrual period Hemorrhage following tonsillectomy and adenoidectomy Hx of cholelithiasis Irregular menstrual cycle Moderate persistent asthma Morbid obesity with body mass index (BMI) of 40.0 to 49.9 Painful menstrual periods Palpitations in pediatric patient Papillary thyroid carcinoma Partial blindness (~2012) Pediatric obesity Postprocedural hypothyroidism PTSD (post-traumatic stress disorder) (~2018) Right hip pain Severe persistent asthma Thyroid mass of unclear etiology Vocal cord dysfunction (~2015) VSD (ventricular septal defect) VSD (ventricular septal defect) Wears glasses Surgical History Anesthesia History of cholecystectomy (~2018) History of thyroidectomy (~09/06/19) History of tonsillectomy and adenoidectomy Hx of tympanostomy tubes Family History Father Mental health problem Mother Cancer Mental health problem Brother Mental health problem Sister Mental health problem Grandfather Diabetes mellitus Hypertension Stroke Grandmother Cancer Mental health problem Grandmother History of heart disease Social History household members: family Smoking Status: Current every day smoker alcohol intake: never Smoking Status: Current every day smoker tobacco type: vaping alcohol intake frequency: holidays/special occasions only Substance Use Type: marijuana Exam Initial Vital Signs Initial Vital Signs: Vital Signs Temperature 98.0 F 02/05/23 22:01 Pulse Rate 101 H 02/05/23 22:01 Respiratory Rate 18 02/05/23 22:01 Blood Pressure 127/82 02/05/23 22:01 Pulse Oximetry 98 02/05/23 22:01 Oxygen Delivery Method Room Air 02/05/23 22:01 GENERAL: Alert tearful 22-year-old EAR: Right ear external within normal limits canal clear tympanic membrane non erythematous bulging Left: Left ear is nontender on the outside no pain over mastoid, significant soft cerumen no foreign body. Manually removed with curette and irrigated with fluid. Canal is erythematous but likely from irrigation and irritation CARDIOVASCULAR: peripheral pulses in tact, cap refill <2 sec RESPIRATORY: No respiratory distress, speaks in full sentences without difficulty EXTREMITIES: Normal range of motion, no clubbing or edema. Neurovascularly intact NEUROLOGICAL: Cranial nerves II through XII grossly intact. Normal gait and speech. SKIN: Warm, dry, no petechiae, no rashes or lesions. Course Vital Signs Vital signs: Vital Signs - 8 hr 02/05/23 22:01 02/06/23 01:49 Temperature 98.0 F 97.6 F Pulse Rate 101 H 92 H Respiratory Rate 18 18 Blood Pressure 127/82 144/78 H Pulse Oximetry 98 98 Oxygen Delivery Method Room Air Room Air Medical Decision Making MDM Narrative Medical decision making narrative: Patient 22-year-old female presents with sudden onset left ear pain and decreased hearing. She is found have cerumen impaction it was removed with a curette and irrigation. She is very anxious about the process but did very well. Canal was erythematous afterwards but probably from irritation I do not see infection. Discharge Plan Departure Patient Disposition: Home Clinical Impression: Cerumen impaction Instructions: Cerumen Impaction Activity Restrictions/Additional Instructions: *You have been diagnosed with cerumen impaction *What to do: *Continue to take medications as directed *Follow up with your primary care provider in 2-3 days or call [phone] *Return to ER if you should have increasing pain, ringing or any new, worsening or concerning symptoms Prescriptions: No Action fluticasone propionate [Flonase Allergy Relief] 50 mcg/actuation spray,suspension 2 spray NASAL DAILY Qty: 9.9 12RF Rx Instructions: administer into each nostril All Day Allergy (cetirizine) 10 mg capsule 10 mg PO DAILY PRN (Reason: allergy symptoms) Qty: 30 0RF Rx Instructions: One tablet each day as needed for allergic rhinitis albuterol sulfate 2.5 mg /3 mL (0.083 %) solution for nebulization 2.5 mg inhalation Q4HP PRN (Reason: Shortness Of Breath Or Wheezing) Qty: 180 3RF albuterol sulfate [Proventil HFA] 90 mcg/actuation HFA aerosol inhaler 2 puff INHALATION Q4H PRN (Reason: Asthma) Qty: 8.5 1RF budesonide-formoterol 160-4.5 mcg/actuation HFA aerosol inhaler See Rx Instructions .ROUTE .COMPLEX Qty: 30.6 1RF Dose Instruction: INHALE 2 PUFFS BY MOUTH TWICE DAILY Rx Instructions: INHALE 2 PUFFS BY MOUTH TWICE DAILY buspirone 7.5 mg tablet 7.5 mg PO BID Qty: 180 1RF hydroxyzine HCl 25 mg tablet 25 mg PO QID PRN (Reason: anxiety) Qty: 60 1RF levothyroxine 200 mcg tablet 200 mcg PO .COMPLEX Qty: 90 0RF Rx Instructions: 200 mcg orally; Take one-half tab 1 day per week, then take 1 tab daily all other days. Repeat labs in 6 weeks. montelukast 10 mg tablet 10 mg PO BEDTIME Qty: 90 1RF ondansetron 4 mg tablet,disintegrating 4 mg PO Q8H PRN (Reason: nausea and vomiting) Qty: 30 1RF acetaminophen 325 mg tablet 325 - 650 mg PO PRN PRN (Reason: pain) lactulose 10 gram/15 mL (15 mL) solution 15 ml PO DAILY PRN (Reason: constipation) Qty: 750 0RF lorazepam [Ativan] 1 mg tablet 1 mg PO BID PRN (Reason: anxiety) Qty: 7 0RF Referrals: Sang Mitchell ARNP [Primary Care Provider] - Stand Alone Forms: Patient Portal/API
[2023-02-06 01:49] VITALS: BP 144/78; PULSE 92; RESP 18; TEMP 36.4; O2SAT 98
== END 2023-02-06 01:52 | disposition home or self-care (01) ==
PROVIDERS: Emergency Provider Emergency Medicine; PCP Registered Nurse Diabetes Educator
DX: H61.22 Impacted cerumen, left ear (principal)
CPT/HCPCS: 99281

== ENCOUNTER 2023-06-05 22:34 | Emergency (ER) | payer OTHER, MEDICAID, SELFPAY ==
[2023-03-02 16:16] VITALS: BMI 52.4
[2023-06-05 22:40] VITALS: BP 147/78; RESP 16; TEMP 36.7; O2SAT 99; BMI 56.5
[2023-06-06] MEDS: IBUPROFEN 400 MG TABLET PO (01:59)
--- NOTE | 2023-06-06 02:51 | ED_ITS ---
HPI - General Adult General Chief complaint: Extremity Injury, Upper Stated complaint: right hand pinky acryllic ripped 1/2 reg nail infe Time Seen by Provider: 06/06/23 01:51 Source: family Mode of arrival: Ambulatory History of Present Illness HPI narrative: 22-year-old woman with a history of thyroid cancer multiple surgeries at the age of 18 and a PTSD experienced with needles presents 48 hours after basically avulsing her left small finger nail. She has long a Kerlix and the acrylic got caught on something most of the nail is loose but that that is left is significantly tender. There is no evidence of infection. Related Data Home Medications Medication Instructions Recorded Confirmed acetaminophen 325 mg tablet 325 - 650 mg PO PRN PRN pain 09/26/19 09/02/22 Previous Rx's Medication Instructions Recorded fluticasone propionate 50 2 spray intranasal DAILY #9.9 mL 08/08/20 mcg/actuation nasal spray,suspension (Flonase Allergy Relief) lorazepam 1 mg tablet (Ativan) 1 mg PO BID PRN anxiety #7 tabs 01/19/21 cetirizine 10 mg capsule (All Day 10 mg PO DAILY PRN allergy 07/09/21 Allergy (cetirizine)) symptoms #30 caps lactulose 10 gram/15 mL (15 mL) 15 ml PO DAILY PRN constipation 07/22/22 oral solution #750 mL budesonide-formoterol HFA 160 See Rx Instructions .Route 12/27/22 mcg-4.5 mcg/actuation aerosol .COMPLEX #30.6 grams inhaler buspirone 7.5 mg tablet 7.5 mg PO BID #180 tabs 12/27/22 hydroxyzine HCl 25 mg tablet 25 mg PO QID PRN anxiety #60 tabs 12/27/22 levothyroxine 200 mcg tablet 200 mcg PO .COMPLEX #90 tabs 12/27/22 montelukast 10 mg tablet 10 mg PO BEDTIME #90 tabs 12/27/22 ondansetron 4 mg disintegrating 4 mg PO Q8H PRN nausea and 12/27/22 tablet vomiting #30 tabs albuterol sulfate 2.5 mg/3 mL 2.5 mg (3 mL) inhalation Q4HP PRN 05/30/23 (0.083 %) solution for nebulization Shortness Of Breath Or Wheezing #540 mL albuterol sulfate 90 mcg/actuation 2 puff inhalation Q4H PRN Asthma 05/30/23 aerosol inhaler (Proventil HFA) #8.5 grams Allergies Allergy/AdvReac Type Severity Reaction Status Date / Time nystatin Allergy Unknown (From Verified 03/03/23 09:56 NYSTATIN AND TRIAMCINOLONE ACET) triamcinolone Allergy Unknown (From Verified 03/03/23 09:56 NYSTATIN AND TRIAMCINOLONE ACET) oxycodone AdvReac Intermediate ITCHING Verified 03/03/23 09:56 adhesive tape AdvReac Mild rash Verified 03/03/23 09:56 Latex, Natural Rubber AdvReac Mild rash Verified 03/03/23 09:56 Review of Systems Review of Systems Narrative: Pertinent positive and negative findings as per HPI Patient History Medical History Acne Anxiety (~2018) Asthma Asthma Chronic back pain Depression (~2018) Dysmenorrhea in adolescent Dysuria Heavy menstrual period Hemorrhage following tonsillectomy and adenoidectomy Hx of cholelithiasis Irregular menstrual cycle Moderate persistent asthma Morbid obesity with body mass index (BMI) of 40.0 to 49.9 Painful menstrual periods Palpitations in pediatric patient Papillary thyroid carcinoma Partial blindness (~2012) Pediatric obesity Postprocedural hypothyroidism PTSD (post-traumatic stress disorder) (~2018) Right hip pain Severe persistent asthma Thyroid mass of unclear etiology Vocal cord dysfunction (~2015) VSD (ventricular septal defect) VSD (ventricular septal defect) Wears glasses Surgical History Anesthesia History of cholecystectomy (~2018) History of thyroidectomy (~09/06/19) History of tonsillectomy and adenoidectomy Hx of tympanostomy tubes Family History Father Mental health problem Mother Cancer Mental health problem Brother Mental health problem Sister Mental health problem Grandfather Diabetes mellitus Hypertension Stroke Grandmother Cancer Mental health problem Grandmother History of heart disease Social History household members: family Smoking Status: Current every day smoker alcohol intake: never Smoking Status: Current every day smoker tobacco type: vaping alcohol intake frequency: holidays/special occasions only Substance Use Type: marijuana Exam Initial Vital Signs Initial Vital Signs: Vital Signs Temperature 98.0 F 06/05/23 22:40 Respiratory Rate 16 06/05/23 22:40 Blood Pressure 147/78 H 06/05/23 22:40 Pulse Oximetry 99 06/05/23 22:40 Oxygen Delivery Method Room Air 06/05/23 22:40 General: Significantly anxious with dramatic fear behaviors but able to be redirected Respiratory: Able to speak in full sentences, no obvious respiratory distress Skin: No obvious rashes, warm and dry Neurologic: Grossly intact no obvious asymmetries or abnormalities Extremity: Left 5th finger with mostly avulsed nail and acrylic still in place. Course Orders Ordered: Discontinued Medications Acetaminophen (Acetaminophen 325 Mg Tablet) 325 mg PO NOW ONE Stop: 06/06/23 01:52 Last Admin: 06/06/23 02:00 Dose: Not Given Documented By: Ibuprofen (Ibuprofen 400 Mg Tablet) 400 mg PO NOW ONE Stop: 06/06/23 01:52 Last Admin: 06/06/23 01:59 Dose: 400 mg Documented By: Vital Signs Vital signs: Vital Signs - 8 hr 06/05/23 22:40 Temperature 98.0 F Respiratory Rate 16 Blood Pressure 147/78 H Pulse Oximetry 99 Oxygen Delivery Method Room Air Medical Decision Making [facility] Narrative Medical decision making narrative: CC: Partially avulsed nail left 5th finger, no nail bed injury Complicating co-morbidities: Severe fear of needles and hospitals after traumatic experience with her thyroid cancer and multiple surgeries at the age of 18 Data collected from: patient, Differential considered: Complete avulsion, partial avulsion, infection Exam documented above, pertinent findings include: Partial nail avulsion. No evidence of infection Treatments: Using 4 cc of lidocaine without epi a digital nerve block was performed with excellent anesthetic results. The cuticle was gently lifted away from the nail and using a needle clark the nail itself was gently pried from the nail bed. There was minimal bleeding. Patient tolerated the procedure well. She was neurovascularly intact postprocedure. A nonocclusive dressing was placed over the nail bed and a gauze wrap over that. Discussion: Partial Nail avulsion was turned into a complete nail removal. There is minimal nail bed involvement. Patient tolerated the procedure well. She is safe for discharge Discharge Plan Departure Patient Disposition: Home Clinical Impression: Avulsion of nail Instructions: DI for Nail Avulsion Injury Activity Restrictions/Additional Instructions: Thank you for coming in today Your little fingers going to be numb for a couple of hours. If it starts throbbing as the pain medication wears off, keep it elevated above your heart. Using 400 mg of ibuprofen (2 gemz-jil-hchlirg pills) and 1 Tylenol every 6 hours can be very helpful in controlling pain. Keep a bit of non adherent dressing over the nail bed for a couple of days. This will heal nicely and you will not need to use a dressing after that. It does not look like the nail bed itself was damaged so the new nail should grow out nicely, typically takes fingernails between 3 and 6 months to completely grow out. If you find that you are getting worse or develop any new symptoms, please feel free to return to the emergency department for further evaluation. Prescriptions: No Action fluticasone propionate [Flonase Allergy Relief] 50 mcg/actuation spray,suspension 2 spray NASAL DAILY Qty: 9.9 12RF Rx Instructions: administer into each nostril All Day Allergy (cetirizine) 10 mg capsule 10 mg PO DAILY PRN (Reason: allergy symptoms) Qty: 30 0RF Rx Instructions: One tablet each day as needed for allergic rhinitis albuterol sulfate 2.5 mg /3 mL (0.083 %) solution for nebulization 2.5 mg inhalation Q4HP PRN (Reason: Shortness Of Breath Or Wheezing) Qty: 540 3RF albuterol sulfate [Proventil HFA] 90 mcg/actuation HFA aerosol inhaler 2 puff INHALATION Q4H PRN (Reason: Asthma) Qty: 8.5 11RF budesonide-formoterol 160-4.5 mcg/actuation HFA aerosol inhaler See Rx Instructions .ROUTE .COMPLEX Qty: 30.6 1RF Dose Instruction: INHALE 2 PUFFS BY MOUTH TWICE DAILY Rx Instructions: INHALE 2 PUFFS BY MOUTH TWICE DAILY buspirone 7.5 mg tablet 7.5 mg PO BID Qty: 180 1RF hydroxyzine HCl 25 mg tablet 25 mg PO QID PRN (Reason: anxiety) Qty: 60 1RF levothyroxine 200 mcg tablet 200 mcg PO .COMPLEX Qty: 90 0RF Rx Instructions: 200 mcg orally; Take one-half tab 1 day per week, then take 1 tab daily all other days. Repeat labs in 6 weeks. montelukast 10 mg tablet 10 mg PO BEDTIME Qty: 90 1RF ondansetron 4 mg tablet,disintegrating 4 mg PO Q8H PRN (Reason: nausea and vomiting) Qty: 30 1RF acetaminophen 325 mg tablet 325 - 650 mg PO PRN PRN (Reason: pain) lactulose 10 gram/15 mL (15 mL) solution 15 ml PO DAILY PRN (Reason: constipation) Qty: 750 0RF lorazepam [Ativan] 1 mg tablet 1 mg PO BID PRN (Reason: anxiety) Qty: 7 0RF Referrals: Sang Mitchell ARNP [Primary Care Provider] - Stand Alone Forms: Patient Portal/API
[2023-06-06 03:00] VITALS: BP 138/70; PULSE 86; RESP 18; O2SAT 99
== END 2023-06-06 03:03 | disposition home or self-care (01) ==
PROVIDERS: Emergency Provider Emergency Medicine; PCP Registered Nurse Diabetes Educator
DX: S61.307A Unspecified open wound of left little finger with damage to nail, initial encounter (principal)
CPT/HCPCS: 99283

== ENCOUNTER → 2023-07-23 12:15 | Outpatient (CLI) | payer OTHER, MEDICAID, SELFPAY ==
[2023-03-02 16:16] VITALS: BMI 52.4
[2023-07-23 13:39] LABS: TSH w/ Reflex to FT4 0.19 uIU/mL (0.47-4.68)
[2023-07-23 14:14] LABS: Free T4, Direct Thyroxine 1.76 ng/dL (0.78-2.19)
== END ==
PROVIDERS: PCP Registered Nurse Diabetes Educator; Referring Provider Registered Nurse Diabetes Educator; Visit Provider Registered Nurse Diabetes Educator
DX: E89.0 Postprocedural hypothyroidism (principal)
CPT/HCPCS: 36415; 84439; 84443

== ENCOUNTER → 2024-06-01 14:15 | Outpatient (CLI) | payer OTHER, MEDICAID, SELFPAY ==
[2023-03-02 16:16] VITALS: BMI 52.4
[2024-06-02 17:25] LABS: Free T4, Direct Thyroxine 0.78 ng/dL (0.78-2.19)
== END ==
PROVIDERS: PCP Registered Nurse Diabetes Educator; Referring Provider Registered Nurse Diabetes Educator; Visit Provider Registered Nurse Diabetes Educator
DX: E89.0 Postprocedural hypothyroidism (principal)
CPT/HCPCS: 36415; 84439; 84443

== ENCOUNTER → 2024-07-11 10:15 | Outpatient (CLI) | payer OTHER, MEDICAID, SELFPAY ==
[2023-03-02 16:16] VITALS: BMI 52.4
[2024-07-11 11:05] LABS: Add Manual Diff / Slide Review NO; Basophils Absolute Auto 100 /uL (0-100); Basophils Percent Auto 0.9 % (0-2); Eosinophils Absolute Auto 200 /uL (0-450); Eosinophils Percent Auto 2.3 % (2-4); Hematocrit 38.4 % (36-46); Hemoglobin 12.8 g/dL (12.0-16.0); Lymphocytes Absolute Auto 1800 /uL (1100-4500); Lymphocytes Percent Auto 19.2 % (25-40); Mean Corpuscular HGB Conc 33.4 % (30-36); Mean Corpuscular Hemoglobin 29.6 PG (26-34); Mean Corpuscular Volume 88.7 fL (80-100); Monocytes Absolute Auto 600 /uL (0-900); Monocytes Percent Auto 6.7 % (3-14); Neutrophils Absolute Auto 6700 /uL (1500-7000); Neutrophils Percent Auto 70.9 % (50-75); Platelet Count 342 X10^3/uL (150-400); Red Blood Cell Count 4.34 X10^6/uL (4.0-5.2); White Blood Cell Count 9.4 X10^3/uL (4.5-11.0)
[2024-07-11 11:57] LABS: Alanine Aminotransferase 14 IU/L (<35); Albumin 3.8 g/dL (3.5-5.0); Albumin Globulin Ratio 1.4 (1.0-2.8); Alkaline Phosphatase 56 U/L (38-126); Aspartate Aminotransferase 17 IU/L (14-36); BUN Creatinine Ratio 9.8 (6-22); Bilirubin Total 0.6 mg/dL (0.2-1.3); Blood Urea Nitrogen 9 mg/dL (7-17); Carbon Dioxide 22 mmol/L (22-32); Chloride 110 mmol/L (98-107); Estimated Glomerular Filt Rate > 60 mL/min (>60); Globulin 2.7 g/dL (1.7-4.1); Glucose 79 mg/dL (70-100); HEMOLYSIS < 15 (0-50); Potassium 3.8 mmol/L (3.4-5.1); Sodium 140 mmol/L (137-145); Total Protein 6.5 g/dL (6.3-8.2)
[2024-07-11 11:58] LABS: Iron 43 ug/dL (37-170)
[2024-07-11 12:31] LABS: Ferritin 12 ng/mL (6-137)
[2024-07-11 12:53] LABS: Free T4, Direct Thyroxine 0.93 ng/dL (0.78-2.19)
== END ==
PROVIDERS: PCP Registered Nurse Diabetes Educator; Referring Provider Registered Nurse Diabetes Educator; Visit Provider Registered Nurse Diabetes Educator
DX: N15.1 Renal and perinephric abscess (principal); N92.0 Excessive and frequent menstruation with regular cycle; Z13.9 Encounter for screening, unspecified; E89.0 Postprocedural hypothyroidism; R19.7 Diarrhea, unspecified
CPT/HCPCS: 36415; 80053; 82728; 83540; 84439; 84443; 85025

== ENCOUNTER → 2024-09-20 13:27 | Outpatient (CLI) | payer OTHER, SELFPAY ==
[2023-03-02 16:16] VITALS: BMI 52.4
[2024-09-20 15:29] LABS: HEMOLYSIS < 15 (0-50); Iron 38 ug/dL (37-170)
[2024-09-20 15:41] LABS: Percent Iron Saturation 14 % (15-50); Total Iron Binding Capacity 279 ug/dL (265-497); Transferrin 243 mg/dL (206-381)
[2024-09-20 15:48] LABS: Vitamin D 25 Hydroxy (D3) 27.3 ng/mL (30.0-100.0)
[2024-09-20 16:07] LABS: Ferritin 17 ng/mL (6-137)
[2024-09-20 16:27] LABS: Free T4, Direct Thyroxine 1.56 ng/dL (0.78-2.19)
[2024-09-23 12:17] LABS: Immunoglobulin A,Qn 185
[2024-09-24 18:39] LABS: Deamidated Gliadin Ab IgA 7 units (0-19); Deamidated Gliadin Ab IgG 2 units (0-19); t-Transglutaminase IgA <2 U/mL (0-3)
== END ==
PROVIDERS: PCP Registered Nurse Diabetes Educator; Referring Provider Registered Nurse Diabetes Educator; Visit Provider Registered Nurse Diabetes Educator
DX: R19.7 Diarrhea, unspecified (principal); R53.83 Other fatigue; L65.0 Telogen effluvium; E89.0 Postprocedural hypothyroidism
CPT/HCPCS: 36415; 82306; 82728; 82784; 83516; 83540; 83550; 84439; 84443

== ENCOUNTER → 2024-11-28 14:32 | Outpatient (CLI) | payer OTHER, SELFPAY ==
[2023-03-02 16:16] VITALS: BMI 52.4
[2024-11-28 16:22] LABS: TSH w/ Reflex to FT4 0.03 uIU/mL (0.47-4.68)
[2024-11-29 15:11] LABS: Hepatitis B Surface Antigen NEGATIVE s/c (NEGATIVE)
[2024-11-29 15:25] LABS: HIV 1 & 2 Ab/Ag 4th Gen Combo NEGATIVE (NEGATIVE); Hep C Virus Ab w/Reflex Quant NEGATIVE s/c (NEGATIVE)
[2024-11-30 04:36] LABS: RPR Screen Non Reactive (Non Reactive)
== END ==
PROVIDERS: PCP Registered Nurse Diabetes Educator; Referring Provider Registered Nurse Diabetes Educator; Visit Provider Registered Nurse Diabetes Educator
DX: Z72.51 High risk heterosexual behavior (principal); E89.0 Postprocedural hypothyroidism
CPT/HCPCS: 36415; 84439; 84443; 86592; 86803; 87340; 87389

== ENCOUNTER → 2025-01-04 12:18 | Outpatient (CLI) | payer OTHER, SELFPAY ==
[2023-03-02 16:16] VITALS: BMI 52.4
[2025-01-04 13:53] LABS: TSH w/ Reflex to FT4 1.89 uIU/mL (0.47-4.68)
== END ==
PROVIDERS: PCP Registered Nurse Diabetes Educator; Referring Provider Registered Nurse Diabetes Educator; Visit Provider Registered Nurse Diabetes Educator
DX: E89.0 Postprocedural hypothyroidism (principal)
CPT/HCPCS: 36415; 84443

== ENCOUNTER 2025-03-01 11:09 | Emergency (ER) | payer OTHER, SELFPAY ==
[2023-03-02 16:16] VITALS: BMI 52.4
[2025-03-01 11:25] VITALS: BP 125/58; PULSE 100; RESP 20; TEMP 36.4; O2SAT 99; BMI 50.5
--- NOTE | 2025-03-01 11:29 | DI.RAD.S_ITS ---
PROCEDURE: XR ANKLE RT MIN 3V INDICATIONS: fall TECHNIQUE: 3 views of the ankle were acquired. COMPARISON: [facility], CR, XR ANKLE RT MIN 3V, 04/07/2021, 13:47. FINDINGS: Bones: No fractures or dislocations. Ankle mortise is normally aligned. No suspicious bony lesions. Soft tissues: Lateral ankle soft tissue swelling. No tibiotalar joint effusion. Achilles tendon appears normal. IMPRESSION: No acute ankle fracture or dislocation. Lateral ankle soft tissue swelling. Dictated by: Alejandro Del Angel M.D. on 03/01/2025 at 11:58 Approved by: Alejandro Del Angel M.D. on 03/01/2025 at 11:58
--- NOTE | 2025-03-01 11:41 | DI.RAD.S_ITS ---
PROCEDURE: XR FOOT RT MIN 3V INDICATIONS: right foot ankle injury TECHNIQUE: 3 views of the foot were acquired. COMPARISON: None. FINDINGS: Bones: No fractures or dislocations. Bipartite medial sesamoid of 1st metatarsal head is seen. No suspicious bony lesions. Soft tissues: No tibiotalar joint effusion. Achilles tendon appears normal. IMPRESSION: No acute right foot fracture or dislocation. Dictated by: Alejandro Del Angel M.D. on 03/01/2025 at 11:59 Approved by: Alejandro Del Angel M.D. on 03/01/2025 at 11:59
--- NOTE | 2025-03-01 12:15 | ED.LOWEXIN ---
HPI - Extremity Injury (Lower) <Meryl Norman PA-C - Last Filed: 03/01/25 13:12> General Chief Complaint: Extremity Injury, Lower Stated Complaint: Possible broken Right foot x 3 days Time Seen by Provider: 03/01/25 11:41 Source: patient Mode of arrival: Wheelchair History of Present Illness HPI Narrative: Ms. Moura is a pleasant 24-year-old female who presents to the emergency department for right ankle injury that occurred 2 days ago. On Tuesday patient was wearing platform shoes, jumping up and down when she rolled her right ankle. The last 2 days she has tried to go about her normal activities however when she woke up this morning the pain was even worse and made it very difficult for her to bear weight on the leg. She has swelling and ecchymosis on the lateral aspect of the right ankle. No other injuries, no numbness tingling weakness, no prior problems with the right foot or ankle but she does report that she has a rolled up before in the past but it never hurt. Related Data Home Medications ?Medication ?Instructions ?Recorded ?Confirmed acetaminophen 325 mg tablet 325 - 650 mg PO PRN PRN pain 09/26/19 03/06/25 Previous Rx's ?Medication ?Instructions ?Recorded albuterol sulfate 2.5 mg/3 mL 2.5 mg (3 mL) inhalation Q4HP PRN 05/30/23 (0.083 %) solution for nebulization Shortness Of Breath Or Wheezing #540 mL montelukast 10 mg tablet 10 mg PO BEDTIME #90 tabs 07/25/23 albuterol sulfate 90 mcg/actuation 2 puff inhalation Q4H PRN Asthma 05/22/24 aerosol inhaler (Proventil HFA) #8.5 grams ergocalciferol (vitamin D2) 1,250 1,250 mcg PO QWEEK #12 caps 09/26/24 mcg (50,000 unit) capsule ondansetron 4 mg disintegrating 4 mg PO Q8H PRN nausea and 01/01/25 tablet vomiting #30 tabs levothyroxine 175 mcg tablet 175 mcg PO .COMPLEX #30 tabs 01/07/25 levothyroxine 200 mcg tablet 200 mcg PO .COMPLEX #75 tabs 01/07/25 budesonide-formoterol HFA 160 See Rx Instructions .Route 03/04/25 mcg-4.5 mcg/actuation aerosol .COMPLEX #30.6 grams inhaler Allergies Allergy/AdvReac Type Severity Reaction Status Date / Time nystatin Allergy Unknown (From Verified 03/06/25 13:31 NYSTATIN AND TRIAMCINOLONE ACET) triamcinolone Allergy Unknown (From Verified 03/06/25 13:31 NYSTATIN AND TRIAMCINOLONE ACET) oxycodone AdvReac Intermediate ITCHING Verified 03/06/25 13:31 adhesive tape AdvReac Mild rash Verified 03/06/25 13:31 Latex, Natural Rubber AdvReac Mild rash Verified 03/06/25 13:31 Review of Systems <Meryl Norman PA-C - Last Filed: 03/01/25 13:12> Review of Systems ROS Unobtainable: All systems reviewed & are unremarkable except as noted in HPI and below Patient History <Meryl Norman PA-C - Last Filed: 03/01/25 13:12> Medical History Cervical high risk human papillomavirus (HPV) DNA test positive Severe persistent asthma Dysuria Wears glasses Acne Chronic back pain Partial blindness (~2012) Painful menstrual periods Irregular menstrual cycle Heavy menstrual period Postprocedural hypothyroidism PTSD (post-traumatic stress disorder) (~2017) Depression (~2017) Anxiety (~2018) Dysmenorrhea in adolescent Asthma Pediatric obesity Right hip pain Palpitations in pediatric patient Papillary thyroid carcinoma VSD (ventricular septal defect) Moderate persistent asthma Thyroid mass of unclear etiology Morbid obesity with body mass index (BMI) of 40.0 to 49.9 Hx of cholelithiasis Hemorrhage following tonsillectomy and adenoidectomy Vocal cord dysfunction (~2015) Asthma VSD (ventricular septal defect) Surgical History Anesthesia History of tonsillectomy and adenoidectomy History of thyroidectomy (~09/06/19) History of cholecystectomy (~2018) Hx of tympanostomy tubes Family History Father Mental health problem Mother Cancer Mental health problem Brother Mental health problem Sister Mental health problem Grandfather Diabetes mellitus Hypertension Stroke Grandmother Cancer Mental health problem Grandmother History of heart disease Social History household members: family Smoking Status: Current every day smoker (Vape) alcohol intake: never Smoking Status: Current every day smoker tobacco type: vaping alcohol intake frequency: holidays/special occasions only Exam <Meryl Norman PA-C - Last Filed: 03/01/25 13:12> Narrative Exam Narrative: GENERAL: 24 year old patient appears stated age. Well developed patient, in no acute distress. HEAD: Atraumatic. Normocephalic. NECK: Trachea midline. Cervical ROM intact. CARDIOVASCULAR: Regular rate RESPIRATORY: ?Nonlabored respirations. ?Speaking in clear, full sentences.? EXTREMITIES: Nonfocal tenderness to palpation of lateral right ankle with edema and ecchymoses. No deformities or open wounds. Foot is neurovascularly intact with brisk cap refill and sensation intact to light touch. Pain with weight-bearing and with range of motion of the ankle. NEURO: AOx3. ?Clear speech. ?Moves all 4 extremities appropriately with the exception of right ankle. SKIN: Warm, dry, intact Initial Vital Signs Initial Vital Signs: Vital Signs Temperature 97.6 F 03/01/25 11:25 Pulse Rate 100 H 03/01/25 11:25 Respiratory Rate 20 03/01/25 11:25 Blood Pressure 125/58 L 03/01/25 11:25 Pulse Oximetry 99 03/01/25 11:25 Oxygen Delivery Method Room Air 03/01/25 11:25 <Naye Ryan DO - Last Filed: 03/11/25 19:18> Initial Vital Signs Initial Vital Signs: Vital Signs Temperature 97.6 F 03/01/25 11:25 Pulse Rate 100 H 03/01/25 11:25 Respiratory Rate 20 03/01/25 11:25 Blood Pressure 125/58 L 03/01/25 11:25 Pulse Oximetry 99 03/01/25 11:25 Oxygen Delivery Method Room Air 03/01/25 11:25 Course <Meryl Norman PA-C - Last Filed: 03/01/25 13:12> Orders Ordered: Discontinued Medications Acetaminophen (Acetaminophen 325 Mg Tablet) 650 mg PO NOW ONE Stop: 03/01/25 12:19 Last Admin: 03/01/25 12:28 Dose: 650 mg Documented By: FAB Ibuprofen (Ibuprofen 400 Mg Tablet) 400 mg PO NOW ONE Stop: 03/01/25 12:19 Last Admin: 03/01/25 12:29 Dose: 400 mg Documented By: SB Vital Signs Vital signs: Vital Signs - 8 hr 03/01/25 11:25 Temperature 97.6 F Pulse Rate 100 H Respiratory Rate 20 Blood Pressure 125/58 L Pulse Oximetry 99 Oxygen Delivery Method Room Air <Naye Ryan DO - Last Filed: 03/11/25 19:18> Orders Ordered: Discontinued Medications Acetaminophen (Acetaminophen 325 Mg Tablet) 650 mg PO NOW ONE Stop: 03/01/25 12:19 Last Admin: 03/01/25 12:28 Dose: 650 mg Documented By: SB Ibuprofen (Ibuprofen 400 Mg Tablet) 400 mg PO NOW ONE Stop: 03/01/25 12:19 Last Admin: 03/01/25 12:29 Dose: 400 mg Documented By: SB Vital Signs Vital signs: Vital Signs - 8 hr 03/01/25 11:25 Temperature 97.6 F Pulse Rate 100 H Respiratory Rate 20 Blood Pressure 125/58 L Pulse Oximetry 99 Oxygen Delivery Method Room Air MDM - Extremity Injury (Lower) <Meryl Norman PA-C - Last Filed: 03/01/25 13:12> Medical Records Attestation: I reviewed the patient's medical records. Imaging Data Right Ankle X-Ray: Radiologist's Impression: PROCEDURE: XR ANKLE RT MIN 3V INDICATIONS: fall TECHNIQUE: 3 views of the ankle were acquired. COMPARISON: [facility], , XR ANKLE RT MIN 3V, 04/07/2021, 13:47. FINDINGS: Bones: No fractures or dislocations. Ankle mortise is normally aligned. No suspicious bony lesions. Soft tissues: Lateral ankle soft tissue swelling. No tibiotalar joint effusion. Achilles tendon appears normal. IMPRESSION: No acute ankle fracture or dislocation. Lateral ankle soft tissue swelling. Dictated by: Alejandro Del Angel M.D. on 03/01/2025 at 11:58 Approved by: Alejandro Del Angel M.D. on 03/01/2025 at 11:58 Right Foot X-ray: Radiologist's Impression: PROCEDURE: XR FOOT RT MIN 3V INDICATIONS: right foot ankle injury TECHNIQUE: 3 views of the foot were acquired. COMPARISON: None. FINDINGS: Bones: No fractures or dislocations. Bipartite medial sesamoid of 1st metatarsal head is seen. No suspicious bony lesions. Soft tissues: No tibiotalar joint effusion. Achilles tendon appears normal. IMPRESSION: No acute right foot fracture or dislocation. Dictated by: Alejandro Del Angel M.D. on 03/01/2025 at 11:59 Approved by: Alejandro Del Angel M.D. on 03/01/2025 at 11:59 [facility] [place] Narrative Medical decision making narrative: 24-year-old female who presents to the emergency department for right ankle injury that occurred 2 days ago. Differential diagnosis includes but is not limited to right ankle sprain, strain, fracture, dislocation, etc. On exam patient is in no acute distress, nontoxic appearing, right ankle and foot are neurovascularly intact, she has ecchymosis and edema overlying the lateral malleolus. X-ray was obtained revealing no fractures, no dislocations, no malalignment. After shared decision-making with the patient, we will treat with Keith wrap, ortho boot as patient does not want to use crutches. Recommended rice therapy, ibuprofen, acetaminophen. Advised patient to follow up with PCP, ortho if symptoms do not improve. She verbalized understanding of all information agree with the plan. She is stable for discharge home. Discharge Plan Departure Patient Disposition: Home Clinical Impression: Inversion sprain of right ankle Qualifiers: Encounter type: initial encounter Qualified Code(s): S93.401A - Sprain of unspecified ligament of right ankle, initial encounter Instructions: DI for Ankle Sprain Activity Restrictions/Additional Instructions: Dear Ms. Moura, Thank you for coming to the emergency department. Today you were evaluated for a right ankle injury, your x-rays do not reveal any broken bones, however your exam is consistent with a right ankle sprain. Please only bear weight on the ankle as tolerated. Use orthopedic boot until symptoms improve, then you may start using an ankle Keith wrap or brace instead. Please follow up with your primary care doctor. If your symptoms are not getting better, your PCP may refer you to an orthopedic doctor for further management. Please use RICE therapy for your pain in addition to ibuprofen/acetaminophen. Rest the painful area. Ice the area of pain/swelling for at least 15 minutes, 4x a day. Compress the area of swelling using a brace, wrap, or splint if applied. Elevate the painful or swollen extremity by supporting it above the level of the heart with pillows when sitting or laying. Please take Ibuprofen (Motrin/Advil) or Acetaminophen (Tylenol) for pain. These are available over the counter. You may take Ibuprofen 600 mg every 8 hours with food for pain. You may also take Acetaminophen 650 mg every 4-6 hours for pain. Do not exceed 3000 mg of Tylenol a day as this can cause liver damage. Do not drink alcohol with either of these medications. Please follow up with your primary care doctor within the next 2-3 days for ER follow-up. (If you do not have a PCP you can call [phone]. ?to schedule an appointment with an [facility] Primary Care Provider) IF YOU DEVELOP ANY NEW OR WORSENING SYMPTOMS, RETURN TO THE ER! Please read the attached instructions, they highlight more specific treatments and interventions for you at home. Thank you for letting me participate in your care, Meryl Norman PA-C Prescriptions: No Action albuterol sulfate 2.5 mg /3 mL (0.083 %) solution for nebulization 2.5 mg inhalation Q4HP PRN (Reason: Shortness Of Breath Or Wheezing) Qty: 540 3RF albuterol sulfate [Proventil HFA] 90 mcg/actuation HFA aerosol inhaler 2 puff INHALATION Q4H PRN (Reason: Asthma) Qty: 8.5 11RF ondansetron 4 mg tablet,disintegrating 4 mg PO Q8H PRN (Reason: nausea and vomiting) Qty: 30 1RF levothyroxine 175 mcg tablet 175 mcg PO .COMPLEX Qty: 30 3RF Rx Instructions: 175 mcg orally every Mon and Th; levothyroxine 200 mcg tablet 200 mcg PO .COMPLEX Qty: 75 3RF Rx Instructions: 200 mcg orally every , Wed, Fri, Sat, Sun; budesonide-formoterol 160-4.5 mcg/actuation HFA aerosol inhaler See Rx Instructions .ROUTE .COMPLEX Qty: 30.6 1RF Dose Instruction: INHALE 2 PUFFS BY MOUTH TWICE DAILY Rx Instructions: INHALE 2 PUFFS BY MOUTH TWICE DAILY ergocalciferol (vitamin D2) 1,250 mcg (50,000 unit) capsule 1,250 mcg PO QWEEK Qty: 12 1RF montelukast 10 mg tablet 10 mg PO BEDTIME Qty: 90 1RF acetaminophen 325 mg tablet 325 - 650 mg PO PRN PRN (Reason: pain) Referrals: Sang Mitchell ARNP [Primary Care Provider, Medical] Stand Alone Forms: Patient Portal/API, Work Release Note ED Sign-out <Naye Ryan, - Last Filed: 03/11/25 19:18> Cosign ED Attending Cosignature Attestation: I was immediately available in the department for consultation.
[2025-03-01] MEDS: ACETAMINOPHEN 325 MG TABLET 650 MG PO (12:28)
[2025-03-01] MEDS: IBUPROFEN 400 MG TABLET PO (12:29)
== END 2025-03-01 13:10 | disposition home or self-care (01) ==
PROVIDERS: Emergency Provider Physician Assistant; PCP Registered Nurse Diabetes Educator
DX: S93.401A Sprain of unspecified ligament of right ankle, initial encounter (principal); X50.1XXA Overexertion from prolonged static or awkward postures, initial encounter
CPT/HCPCS: 73610; 73630; 99283

== ENCOUNTER → 2025-09-18 17:00 | Outpatient (CLI) | payer OTHER, SELFPAY ==
[2023-03-02 16:16] VITALS: BMI 52.4
[2025-09-18 20:21] LABS: TSH w/ Reflex to FT4 0.15 uIU/mL (0.47-4.68)
[2025-09-18 20:51] LABS: Free T4, Direct Thyroxine 1.48 ng/dL (0.78-2.19)
== END ==
PROVIDERS: PCP Registered Nurse Diabetes Educator; Referring Provider Registered Nurse Diabetes Educator; Visit Provider Registered Nurse Diabetes Educator
DX: E89.0 Postprocedural hypothyroidism (principal)
CPT/HCPCS: 84439; 84443